=== PATIENT | male | born 1940 | race Caucasian/White ===

== ENCOUNTER → 2017-09-12 | Outpatient (CLI) | END | disposition home or self-care (01) ==

== ENCOUNTER → 2017-12-02 | Outpatient (CLI) | END | disposition home or self-care (01) ==

== ENCOUNTER 2018-06-16 02:38 | Emergency (ER) | END 2018-06-16 05:25 | disposition home or self-care (01) ==

== ENCOUNTER 2018-12-30 08:47 | Observation (INO) | payer MEDICARE, OTHER ==
[~2018-12-30] VITALS: Ht 167.6 cm; Wt 75.0 kg
[~2018-12-30 08:47] MED LIST: AMIO200T; DABI150C PO; DUTA0.5C; EDOX30TA PO; FEBU40TA PO; METF-849 PO; POTA5TAB PO; RAMI2.5C36 PO; RSV10T; TAMS-14 PO; TRAM50TA2 PO
[2018-12-30] MEDS ORDERED: ASPIRIN 81 MG TAB PO ONE (09:30)
[2018-12-30] MEDS ORDERED: APIX2.5T PO (10:21)
[2018-12-30] MEDS ORDERED: AMIO100T4 PO (10:21)
[2018-12-30] MEDS ORDERED: CHOL100062 PO (10:22)
[2018-12-30] MEDS ORDERED: FOLI-49 PO (10:22)
[2018-12-30] MEDS ORDERED: NITR0.4T32 SL (10:23)
[2018-12-30] MEDS ORDERED: GLIM1TAB2 PO (10:24)
[2018-12-30] MEDS ORDERED: DUTA0.5C PO (10:24)
[2018-12-30] MEDS ORDERED: TAMS0.4C2 PO (10:25)
[2018-12-30] MEDS ORDERED: RSV10T PO (10:26)
[2018-12-30] MEDS ORDERED: METO-448 PO (10:26)
[2018-12-30] MEDS ORDERED: POTA15TA9 PO (10:27)
--- NOTE | 2018-12-30 10:54 | ERD ---
ER Documentation Chief Complaint Chief Complaint BIB RA FOR EVAL OF CP. PT TOOK OWN NTG SOFTWARE QUALITY TESTER. PT PAIN FREE AT THIS TIME. HPI This is an 78-year-old gentleman history of coronary disease, A. fib on Eliquis with a pacemaker who presents with palpitations. EMS reported that the patient had transient A. fib with RVR. The patient noted some discomfort in his chest over the past 24-48 hours. He has no significant chest discomfort currently because he took home nitroglycerin. He denies pleuritic pain or significant shortness of breath. ROS All systems reviewed and are negative except as per history of present illness. Medications Home Meds Reported Medications Potassium Citrate* (Potassium Citrate* ER) 15 Meq Tablet.er, 15 MEQ PO DAILY, TAB.SA 12/30/18 Rosuvastatin Calcium* (Crestor*) 10 Mg Tablet, 10 MG PO QHS, #30 TAB 12/30/18 Metoprolol Tartrate* (Lopressor*) 25 Mg Tab, 25 MG PO QPM, #60 TAB 12/30/18 Tamsulosin Hcl* (Tamsulosin Hcl*) 0.4 Mg Cap.er.24h, 0.4 MG PO HS, CAP 12/30/18 Dutasteride* (Avodart*) 0.5 Mg Capsule, 0.5 MG PO DAILY, CAP 12/30/18 Glimepiride* (Glimepiride*) 1 Mg Tablet, 1 MG PO WITH LUNCH, TAB 12/30/18 Nitroglycerin* (Nitroglycerin* SL) 0.4 Mg Tab.subl, 0.4 MG SL Q5MIN PRN for CHEST PAIN, BOTTLE 12/30/18 Cholecalciferol* (Vitamin D3*) 1,000 Unit Tablet, 1000 UNIT PO DAILY, TAB 12/30/18 Folic Acid* (Folic Acid*) 1 Mg Tablet, 1 MG PO DAILY, TAB 12/30/18 Apixaban* (Eliquis*) 2.5 Mg Tablet, 2.5 MG PO BID, TAB 12/30/18 Amiodarone Hcl* (Amiodarone Hcl*) 100 Mg Tablet, 100 MG PO DAILY, #30 TAB 12/30/18 Discontinued Reported Medications Metformin* (Glucophage*) 500 Mg Tab, 500 MG PO WITH BREAKFAST, #30 TAB 12/20/15 Edoxaban Tosylate (Savaysa) 30 Mg Tablet, 30 MG PO DAILY, TAB 12/20/15 Tamsulosin Hcl* (Flomax*) 0.4 Mg Cap.er.24h, 0.4 MG PO DAILY, CAP 06/19/14 Febuxostat* (Uloric*) 40 Mg Tablet, 40 MG PO DAILY, TAB 06/19/14 Ramipril (Ramipril) 2.5 Mg Capsule, 2.5 MG PO DAILY, CAP 06/19/14 Potassium Citrate* (Potassium Citrate* ER) 5 Meq Tablet.sa, 15 MEQ PO DAILY, TAB.SA 06/19/14 Dabigatran Etexilate Mesylate* (Pradaxa*) 150 Mg Capsule, 150 MG PO BID, CAP 06/19/14 Amiodarone Hcl* (Amiodarone Hcl*) 200 Mg Tablet, 1 DAILY 04/16/12 Rosuvastatin Calcium* (Crestor*) 10 Mg Tablet, 1 DAILY 04/16/12 Dutasteride* (Avodart*) 0.5 Mg Capsule, 1 DAILY 04/16/12 Discontinued Scripts Tramadol HCl (Tramadol HCl) 50 Mg Tablet, 50 MG PO Q4 PRN for PAIN, #20 TAB Prov:TERE MEADOWS 06/16/18 Allergies Allergies: Coded Allergies: No Known Drug Allergy (Verified Allergy, Unknown, 12/30/18) PMhx/Soc History of Surgery: Yes (PACEMAKER) Anesthesia Reaction: No Hx Neurological Disorder: No Hx Respiratory Disorders: No Hx Cardiac Disorders: Yes (HTN) Hx Psychiatric Problems: No Hx Miscellaneous Medical Probl: No Hx Alcohol Use: Yes Hx Substance Use: No Hx Tobacco Use: No Smoking Status: Never smoker FmHx Family History: No diabetes Physical Exam Vitals Vital Signs Date Temp Pulse Resp B/P (MAP) Pulse Ox O2 O2 Flow FiO2 Time Delivery Rate 12/30/18 Nasal 2 09:00 Cannula 12/30/18 98.2 60 18 164/104 99 08:58 (124) 12/30/18 62 12 116/79 97 Room Air 08:55 (91) Physical Exam General: Well developed, well nourished, no acute distress Head: Normocephalic, atraumatic. Eyes: Pupils equally reactive, EOM intact ENT: Moist mucous membranes Neck: Supple, no lymphadenopathy Respiratory: Lungs clear bilaterally, no distress Cardiovascular: RRR, no murmurs, rubs, or gallops Abdominal: Soft, non-tender, non-distended, no peritoneal signs : Deferred MSK: No edema, no unilateral swelling, 5/5 strength Neurologic: Alert and oriented, moving all extremities, normal speech, no focal weakness, no cerebellar signs Skin: No rash Psych: Normal mood Result Diagram: 12/30/1890312/30/18903 Results 24 hrs Laboratory Tests Test 12/30/18 09:04 White Blood Count 11.6 10^3/ul Red Blood Count 5.16 10^6/ul Hemoglobin 15.2 g/dl Hematocrit 44.8 % Mean Corpuscular Volume 86.8 fl Mean Corpuscular Hemoglobin 29.5 pg Mean Corpuscular Hemoglobin Concent 33.9 g/dl Red Cell Distribution Width 13.2 % Platelet Count 109 10^3/UL Mean Platelet Volume 10.1 fl Immature Granulocytes % 0.400 % Neutrophils % 49.5 % Lymphocytes % 41.3 % Monocytes % 7.6 % Eosinophils % 0.9 % Basophils % 0.3 % Nucleated Red Blood Cells % 0.0 /100WBC Immature Granulocytes # 0.050 10^3/ul Neutrophils # 5.7 10^3/ul Lymphocytes # 4.8 10^3/ul Monocytes # 0.9 10^3/ul Eosinophils # 0.1 10^3/ul Basophils # 0.0 10^3/ul Nucleated Red Blood Cells # 0.0 10^3/ul Sodium Level 140 mmol/L Potassium Level 4.9 mmol/L Chloride Level 104 mmol/L Carbon Dioxide Level 27 mmol/L Anion Gap 9 Blood Urea Nitrogen 17 mg/dl Creatinine 1.09 mg/dl Est Glomerular Filtrat Rate mL/min mL/min Glucose Level 154 mg/dl Calcium Level 9.4 mg/dl Troponin I < 0.012 ng/ml Current Medications Medications Dose Sig/Otilia Start Time Status Last (Trade) Ordered Route PRN Stop Time Admin Dose Reason Admin Aspirin 162 mg ONCE ONCE 12/30/18 DC 12/30/18 (Aspirin) PO 09:30 12/30/18 09:32 09:31 Procedures/MDM EKG, MONITORS, & DIAGNOSTIC IMAGING: EKG: I reviewed and interpreted a 12-lead EKG. Rhythm: paced ST Changes: No contiguous ST segment elevations T waves: No contiguous T wave inversions Impression: [No evidence of acute cardiac ischemia] Repeat EKG: EKG: I reviewed and interpreted a 12-lead EKG. Rhythm: paced ST Changes: No contiguous ST segment elevations T waves: No contiguous T wave inversions Impression: [No evidence of acute cardiac ischemia] Chest x-ray: I reviewed and interpreted a 1 view of the chest Mediastinum: No enlargement Cardiac silhouette: No cardiomegaly Airspace: Clear lung singleton bilaterally without evidence of pneumothorax Bones: No evidence of fracture PROCEDURES: [None] LAB INTERPRETATION: Negative troponin MEDICAL DECISION MAKING: The patient's history, physical exam and clinical presentation is concerning for possible cardiogenic etiology and acute coronary syndrome. Based on the patient's clinical exam and history and risk factors, I have a much lower clinical concern for pulmonary embolism, acute aortic dissection, pneumothorax, pneumonia, cardiac tamponade HEART Score: 5 MACE Rate: 12-16.6% Shared Decision Making: We had a conversation regarding risk stratification, MACE rate, and the risks, benefits, alternatives of disposition planning options. Disposition planning: Admit for r/o ER COURSE: * Aspirin provided. Chest pain-free. Negative troponin. Given risk profile admission necessary. CONSULTATION: [None] DISPOSITION PLAN: Telemetry admission for management of chest pain to rule out acute coronary syndrome, serial enzymes, risk stratification and consideration of provocative testing CONSULTATION: Accepting care team and consultations: I discussed the current laboratory data, diagnostic imaging and emergency care provided. Ad[facility] Admitting team indication: Insurance directed Departure Diagnosis: Primary Impression: Chest pain Chest pain type: unspecified Qualified Codes: R07.9 - Chest pain, unspecified Additional Impression: History of atrial fibrillation Condition: KIRILL Guardado MD Dec 30, 2018 10:54
[2018-12-30 11:00] VITALS: BP 132/75; PULSE 60; RESP 20
[2018-12-30] MEDS ORDERED: HYDROCODONE/APAP (5/325) TAB PO PRN (11:00)
[2018-12-30] MEDS ORDERED: morphine 2 MG INJ IV PRN (11:00)
[2018-12-30] MEDS ORDERED: ACETAMINOPHEN 325 MG TAB PO PRN ×2 (11:00)
[2018-12-30] MEDS ORDERED: NACL 0.9% 3 ML SYG IV SCH (11:00)
[2018-12-30] MEDS ORDERED: ONDANSETRON 4 MG INJ IV PRN ×2 (11:00)
--- NOTE | 2018-12-30 11:23 | CONS ---
Consultation Date/Type/Reason Admit Date/Time Type of Consult Cardiology Date/Time of Note DATE: 12/30/18 TIME: 11:22 Hx of Present Illness 78 yo with hTN, CAD, pacer, parox a. fib - recently low plt - stopped anti- coagulation and restarted yesterday with Eliquis 2.5 bid per pmd (new medication for him) - now a. fib with RVR and conversion to sinus - ? Eliquis effect - con't now - add amio + BB - stres test tomorrow - full note dictated, tnx you Past Medical History Home Meds Reported Medications Potassium Citrate* (Potassium Citrate* ER) 15 Meq Tablet.er, 15 MEQ PO DAILY, TAB.SA 12/30/18 Rosuvastatin Calcium* (Crestor*) 10 Mg Tablet, 10 MG PO QHS, #30 TAB 12/30/18 Metoprolol Tartrate* (Lopressor*) 25 Mg Tab, 25 MG PO QPM, #60 TAB 12/30/18 Tamsulosin Hcl* (Tamsulosin Hcl*) 0.4 Mg Cap.er.24h, 0.4 MG PO HS, CAP 12/30/18 Dutasteride* (Avodart*) 0.5 Mg Capsule, 0.5 MG PO DAILY, CAP 12/30/18 Glimepiride* (Glimepiride*) 1 Mg Tablet, 1 MG PO WITH LUNCH, TAB 12/30/18 Nitroglycerin* (Nitroglycerin* SL) 0.4 Mg Tab.subl, 0.4 MG SL Q5MIN PRN for CHEST PAIN, BOTTLE 12/30/18 Cholecalciferol* (Vitamin D3*) 1,000 Unit Tablet, 1000 UNIT PO DAILY, TAB 12/30/18 Folic Acid* (Folic Acid*) 1 Mg Tablet, 1 MG PO DAILY, TAB 12/30/18 Apixaban* (Eliquis*) 2.5 Mg Tablet, 2.5 MG PO BID, TAB 12/30/18 Amiodarone Hcl* (Amiodarone Hcl*) 100 Mg Tablet, 100 MG PO DAILY, #30 TAB 12/30/18 Discontinued Reported Medications Metformin* (Glucophage*) 500 Mg Tab, 500 MG PO WITH BREAKFAST, #30 TAB 12/20/15 Edoxaban Tosylate (Savaysa) 30 Mg Tablet, 30 MG PO DAILY, TAB 12/20/15 Tamsulosin Hcl* (Flomax*) 0.4 Mg Cap.er.24h, 0.4 MG PO DAILY, CAP 06/19/14 Febuxostat* (Uloric*) 40 Mg Tablet, 40 MG PO DAILY, TAB 06/19/14 Ramipril (Ramipril) 2.5 Mg Capsule, 2.5 MG PO DAILY, CAP 06/19/14 Potassium Citrate* (Potassium Citrate* ER) 5 Meq Tablet.sa, 15 MEQ PO DAILY, TAB.SA 06/19/14 Dabigatran Etexilate Mesylate* (Pradaxa*) 150 Mg Capsule, 150 MG PO BID, CAP 06/19/14 Amiodarone Hcl* (Amiodarone Hcl*) 200 Mg Tablet, 1 DAILY 04/16/12 Rosuvastatin Calcium* (Crestor*) 10 Mg Tablet, 1 DAILY 04/16/12 Dutasteride* (Avodart*) 0.5 Mg Capsule, 1 DAILY 04/16/12 Discontinued Scripts Tramadol HCl (Tramadol HCl) 50 Mg Tablet, 50 MG PO Q4 PRN for PAIN, #20 TAB Prov:TERE MEADOWS 06/16/18 Medications Current Medications Ondansetron HCl (Zofran Inj) 4 mg ER BRIDGE PRN IV NAUSEA/VOMITING; Start 12/30/18 at 11:00; Stop 12/31/18 at 10:59 Acetaminophen (Tylenol Tab) 650 mg ER BRIDGE PRN PO .MILD PAIN 1-3 OR TEMP; Start 12/30/18 at 11:00; Stop 12/31/18 at 10:59 IV Flush (NS 3 ml) 3 ml PER PROTOCOL IV ; Start 12/30/18 at 11:00 Ondansetron HCl (Zofran Inj) 4 mg Q6H PRN IV NAUSEA/VOMITING; Start 12/30/18 at 11:00 Acetaminophen (Tylenol Tab) 650 mg Q6H PRN PO .PAIN 1-3 OR TEMP; Start 12/30/18 at 11:00 Acetaminophen/ Hydrocodone Bitart ([place] (5/325)) 1 tab Q6H PRN PO .PAIN 4-6; Start 12/30/18 at 11:00 Morphine Sulfate (morphine) 2 mg Q4H PRN IV .PAIN 7-10; Start 12/30/18 at 11:00 Apixaban (Eliquis) 2.5 mg BID PO ; Start 12/30/18 at 21:00 Cholecalciferol (Vitamin D) 1,000 unit DAILY PO ; Start 12/31/18 at 09:00 Dutasteride (Avodart) 0.5 mg DAILY PO ; Start 12/31/18 at 09:00 Folic Acid (Folic Acid) 1 mg DAILY PO ; Start 12/31/18 at 09:00 Metoprolol Tartrate (Lopressor) 25 mg QPM PO ; Start 12/30/18 at 21:00 Tamsulosin HCl (Flomax) 0.4 mg HS PO ; Start 12/30/18 at 21:00 Atorvastatin Calcium (Lipitor) 40 mg HS PO ; Start 12/30/18 at 21:00 Hydralazine HCl (Apresoline) 10 mg Q4H PRN IV sbp >160; Start 12/30/18 at 11:30 Carvedilol (Coreg) 6.25 mg BID PO ; Start 12/30/18 at 21:00 Amiodarone HCl (Cordarone) 200 mg BID PO ; Start 12/30/18 at 21:00 Allergies: Coded Allergies: No Known Drug Allergy (Verified Allergy, Unknown, 12/30/18) Social History Smoking Status: Never smoker Exam/Review of Systems Vital Signs Vitals Vital Signs Date Temp Pulse Resp B/P (MAP) Pulse Ox O2 O2 Flow FiO2 Time Delivery Rate 12/30/18 Nasal 2 09:00 Cannula 12/30/18 98.2 60 18 164/104 99 08:58 (124) Labs Result Diagram: 12/30/1804 12/30/18 0904 Results 24hrs Laboratory Tests Test 12/30/18 09:04 White Blood Count 11.6 H Red Blood Count 5.16 Hemoglobin 15.2 Hematocrit 44.8 Mean Corpuscular Volume 86.8 Mean Corpuscular Hemoglobin 29.5 Mean Corpuscular Hemoglobin Concent 33.9 Red Cell Distribution Width 13.2 Platelet Count 109 L Mean Platelet Volume 10.1 Immature Granulocytes % 0.400 Neutrophils % 49.5 Lymphocytes % 41.3 Monocytes % 7.6 Eosinophils % 0.9 Basophils % 0.3 Nucleated Red Blood Cells % 0.0 Immature Granulocytes # 0.050 H Neutrophils # 5.7 Lymphocytes # 4.8 H Monocytes # 0.9 Eosinophils # 0.1 Basophils # 0.0 Nucleated Red Blood Cells # 0.0 Sodium Level 140 Potassium Level 4.9 Chloride Level 104 Carbon Dioxide Level 27 Anion Gap 9 Blood Urea Nitrogen 17 Creatinine 1.09 Est Glomerular Filtrat Rate mL/min Glucose Level 154 Calcium Level 9.4 Troponin I < 0.012 Medications Medications Current Medications Ondansetron HCl (Zofran Inj) 4 mg ER BRIDGE PRN IV NAUSEA/VOMITING; Start 12/30/18 at 11:00; Stop 12/31/18 at 10:59 Acetaminophen (Tylenol Tab) 650 mg ER BRIDGE PRN PO .MILD PAIN 1-3 OR TEMP; Start 12/30/18 at 11:00; Stop 12/31/18 at 10:59 IV Flush (NS 3 ml) 3 ml PER PROTOCOL IV ; Start 12/30/18 at 11:00 Ondansetron HCl (Zofran Inj) 4 mg Q6H PRN IV NAUSEA/VOMITING; Start 12/30/18 at 11:00 Acetaminophen (Tylenol Tab) 650 mg Q6H PRN PO .PAIN 1-3 OR TEMP; Start 12/30/18 at 11:00 Acetaminophen/ Hydrocodone Bitart ([place] (5/325)) 1 tab Q6H PRN PO .PAIN 4-6; Start 12/30/18 at 11:00 Morphine Sulfate (morphine) 2 mg Q4H PRN IV .PAIN 7-10; Start 12/30/18 at 11:00 Apixaban (Eliquis) 2.5 mg BID PO ; Start 12/30/18 at 21:00 Cholecalciferol (Vitamin D) 1,000 unit DAILY PO ; Start 12/31/18 at 09:00 Dutasteride (Avodart) 0.5 mg DAILY PO ; Start 12/31/18 at 09:00 Folic Acid (Folic Acid) 1 mg DAILY PO ; Start 12/31/18 at 09:00 Metoprolol Tartrate (Lopressor) 25 mg QPM PO ; Start 12/30/18 at 21:00 Tamsulosin HCl (Flomax) 0.4 mg HS PO ; Start 12/30/18 at 21:00 Atorvastatin Calcium (Lipitor) 40 mg HS PO ; Start 12/30/18 at 21:00 Hydralazine HCl (Apresoline) 10 mg Q4H PRN IV sbp >160; Start 12/30/18 at 11:30 Carvedilol (Coreg) 6.25 mg BID PO ; Start 12/30/18 at 21:00 Amiodarone HCl (Cordarone) 200 mg BID PO ; Start 12/30/18 at 21:00 KATIE LUNA MD Dec 30, 2018 11:23
[2018-12-30] MEDS ORDERED: hydrALAzine 20 MG INJ IV PRN (11:30)
[2018-12-30 12:00] VITALS: PULSE 60
[2018-12-30 12:08] VITALS: Ht 167.6 cm; Wt 75.0 kg
[2018-12-30] MEDS ORDERED: GLUCOSE GEL 15 GRAM TUBE BUCCAL PRN (13:00)
[2018-12-30] MEDS ORDERED: GLUCAGON 1 MG INJ IM PRN (13:00)
[2018-12-30] MEDS ORDERED: GLUCOSE GEL 15 GRAM TUBE PO PRN ×2 (13:00)
[2018-12-30] MEDS ORDERED: DEXTROSE 50% 50 ML SYRINGE IV PRN ×2 (13:00)
--- NOTE | 2018-12-30 13:09 | HP ---
Date/Time of Note Date/Time of Note DATE: 12/30/18 TIME: 13:09 Assessment/Plan VTE Prophylaxis Pharmacological prophylaxis: other Lines/Catheters IV Catheter Type (from Nrs): Saline Lock Assessment/Plan Hospital Course Patient is a male with a past medical history significant for atrial fibrillation is paroxysmal, coronary artery disease pacemaker, BPH, dyslipidemia, diabetes mellitus, recently diagnosed with normal cytopenia who presents to [facility] for palpitations and chest irritation. Patient presenting to emergency department complaining of palpitations and chest irritation for the past 1-2 days. Patient states that he took a home nitroglycerin and he follows up with a wheelman on a regular basis. Currently patient feels relatively chest pain-free, denying any significant palpitations at this time. Patient denies any shortness of breath, abdominal pain, nausea, vomiting, headache, leg pain. The patient has a pacemaker surgery as well as a childhood left foot surgery Objective Physical exam General: Patient is laying in bed and answers questions appropriately Mentation: Patient is alert and oriented 4, Head: Normocephalic atraumatic Eyes: EOMI, pupils reactive to light Neck: Supple, nontender, midline Respiratory: Clear to auscultation bilaterally Cardiovascular: regular rate, no obvious murmurs Gastrointestinal: non-tender to palpation, bowel sounds heard. Neurological: Moves all extremities spontaneously Skin: No new skin lesions Assessment and plan Chest palpitations with chest irritation -Rule out ACS, stress test planned for tomorrow as patient's wheelman, Dr. Oglesby was consulted -Continue to trend troponins -Statin -Echo if needed per wheelman Coronary artery disease -Management as above wheelman -Stress test pending for tomorrow -Continue baby aspirin per cardiology recommendations Paroxysmal A. fib -Continue Eliquis per cardiology recommendations -Amiodarone and beta-yolanda has also been adjusted per wheelman Diabetes mellitus -Insulin sliding scale for now Dyslipidemia -Statin BPH -Tamsulosin para graph disposition -Monitor patient for chest pain, trend troponins, stress test planned for the a.m. Result Diagram: 12/30/1890312/30/18903 Results 24hrs Laboratory Tests Test 12/30/18 09:04 White Blood Count 11.6 H Red Blood Count 5.16 Hemoglobin 15.2 Hematocrit 44.8 Mean Corpuscular Volume 86.8 Mean Corpuscular Hemoglobin 29.5 Mean Corpuscular Hemoglobin Concent 33.9 Red Cell Distribution Width 13.2 Platelet Count 109 L Mean Platelet Volume 10.1 Immature Granulocytes % 0.400 Neutrophils % 49.5 Lymphocytes % 41.3 Monocytes % 7.6 Eosinophils % 0.9 Basophils % 0.3 Nucleated Red Blood Cells % 0.0 Immature Granulocytes # 0.050 H Neutrophils # 5.7 Lymphocytes # 4.8 H Monocytes # 0.9 Eosinophils # 0.1 Basophils # 0.0 Nucleated Red Blood Cells # 0.0 Sodium Level 140 Potassium Level 4.9 Chloride Level 104 Carbon Dioxide Level 27 Anion Gap 9 Blood Urea Nitrogen 17 Creatinine 1.09 Est Glomerular Filtrat Rate mL/min Glucose Level 154 Calcium Level 9.4 Troponin I < 0.012 HPI/ROS Admit Date/Time Admit Date/Time PMH/Family/Social Past Medical History Medications Current Medications Ondansetron HCl (Zofran Inj) 4 mg ER BRIDGE PRN IV NAUSEA/VOMITING; Start 12/30/18 at 11:00; Stop 12/31/18 at 10:59 Acetaminophen (Tylenol Tab) 650 mg ER BRIDGE PRN PO .MILD PAIN 1-3 OR TEMP; Start 12/30/18 at 11:00; Stop 12/31/18 at 10:59 IV Flush (NS 3 ml) 3 ml PER PROTOCOL IV ; Start 12/30/18 at 11:00 Ondansetron HCl (Zofran Inj) 4 mg Q6H PRN IV NAUSEA/VOMITING; Start 12/30/18 at 11:00 Acetaminophen (Tylenol Tab) 650 mg Q6H PRN PO .PAIN 1-3 OR TEMP; Start 12/30/18 at 11:00 Acetaminophen/ Hydrocodone Bitart ([place] (5/325)) 1 tab Q6H PRN PO .PAIN 4-6; Start 12/30/18 at 11:00 Morphine Sulfate (morphine) 2 mg Q4H PRN IV .PAIN 7-10; Start 12/30/18 at 11:00 Apixaban (Eliquis) 2.5 mg BID PO ; Start 12/30/18 at 21:00 Cholecalciferol (Vitamin D) 1,000 unit DAILY PO ; Start 12/31/18 at 09:00 Dutasteride (Avodart) 0.5 mg DAILY PO ; Start 12/31/18 at 09:00 Folic Acid (Folic Acid) 1 mg DAILY PO ; Start 12/31/18 at 09:00 Tamsulosin HCl (Flomax) 0.4 mg HS PO ; Start 12/30/18 at 21:00 Atorvastatin Calcium (Lipitor) 40 mg HS PO ; Start 12/30/18 at 21:00 Hydralazine HCl (Apresoline) 10 mg Q4H PRN IV sbp >160; Start 12/30/18 at 11:30 Diagnostic Test (Pha) (Accu-Chek) 1 ea 02 XX ; Start 12/31/18 at 02:00 Insulin Aspart (Novolog Insulin Pen) NOVOLOG *MILD* ALGORITHM WITH MEALS BEDTIME SC ; Start 12/30/18 at 17:55 Miscellaneous Information 1 ea NOTE XX ; Start 12/30/18 at 13:00 Glucose (Glutose) 15 gm Q15M PRN PO DECREASED GLUCOSE; Start 12/30/18 at 13:00 Glucose (Glutose) 22.5 gm Q15M PRN PO DECREASED GLUCOSE; Start 12/30/18 at 13:00 Dextrose (D50w Syringe) 25 ml Q15M PRN IV DECREASED GLUCOSE; Start 12/30/18 at 13:00 Dextrose (D50w Syringe) 50 ml Q15M PRN IV DECREASED GLUCOSE; Start 12/30/18 at 13:00 Glucagon (Glucagen) 1 mg Q15M PRN IM DECREASED GLUCOSE; Start 12/30/18 at 13:00 Glucose (Glutose) 15 gm Q15M PRN BUCCAL DECREASED GLUCOSE; Start 12/30/18 at 13:00 Amiodarone HCl (Cordarone) 200 mg BID PO ; Start 12/30/18 at 13:00; Status UNV Carvedilol (Coreg) 6.25 mg BID PO ; Start 12/30/18 at 13:00; Status UNV Coded Allergies: No Known Drug Allergy (Verified Allergy, Unknown, 12/30/18) Social History Smoking Status: Never smoker Exam/Review of Systems Vital Signs Vitals Vital Signs Date Temp Pulse Resp B/P (MAP) Pulse Ox O2 O2 Flow FiO2 Time Delivery Rate 12/30/18 60 14 110/74 97 Room Air 11:33 (86) 12/30/18 2 09:00 12/30/18 98.2 08:58 CHELITA QUILES Dec 30, 2018 13:09
[2018-12-30] MEDS: AMIODARONE 200 MG TAB PO SCH ×2 (13:46→22:47)
--- NOTE | 2018-12-30 14:20 | CONS ---
DATE OF ADMISSION: 12/30/2018 DATE OF CONSULTATION: TYPE OF CONSULTATION: Cardiology. REFERRING PHYSICIAN: Chelita Youngblood MD REASON FOR EVALUATION: Atrial fibrillation with rapid ventricular response, precordial chest pain. HISTORY OF PRESENT ILLNESS: Mr. Flores is an 78-year-old gentleman known to me from multiple offic e visits and hospital admissions with history of hypertension, dyslipidemia, history of coronary nelson ry disease, history of atrial fibrillation, history of recently diagnosed low platelet count per PMD. The patient was on ____ prior, but recently it was held because of low platelets. [facility]. Apparently, his platelets got better, so he was re started on Eliquis. Last night, he had multiple episodes of atrial fibrillation with rapid ventricul ar response and finally came to the hospital because of precordial chest pain. It appears that he co nverted to sinus rhythm now which was a spontaneous conversion. His initial troponin was 0.012, but the patient did have some precordial chest pain. He has not had any risk stratification and I am goi ng to recommend for patient to have inpatient risk stratification with stress test as possible. With regard to his anticoagulation, it appears that his platelets are now 109 and I think he will tolerat e a small dose of Eliquis. I think the 2.5 mg dosing would be appropriate given his age of 78 as wel l as low platelets. PAST MEDICAL HISTORY: Hypertension, dyslipidemia, history of atrial fibrillation, history of coronar y artery disease, history of pacemaker placement, history of paroxysmal atrial fibrillation, history of recent diagnosis of low platelets of unclear significance, secondary hypercoagulable state. ALLERGIES: NO KNOWN DRUG ALLERGIES. SOCIAL HISTORY: The patient does not smoke, does not drink, does not use any drugs. FAMILY HISTORY: Negative for sudden cardiac or premature coronary artery disease. MEDICATIONS: The patient is on: 1. Amiodarone 100 mg p.o. b.i.d. 2. ____ once a day. 3. Eliquis 2.5 mg p.o. b.i.d. 4. Folic acid. 5. Docusate. 6. Lipitor. 7. Hydrochlorothiazide. 8. Morphine sulfate. REVIEW OF SYSTEMS: CONSTITUTIONAL: No fevers, no chills, no recent weight. HEENT: No changes in vision or hearing. CARDIAC: Chest pain as reported above with AFib. RESPIRATORY: Shortness of breath. GASTROINTESTINAL: No nausea, vomiting. GENITOURINARY: No dysuria, hematuria. NEUROLOGIC: No focal deficits. HEMATOLOGIC: No easy bruising. PSYCHIATRIC: No history of psychiatric illness. PHYSICAL EXAMINATION: VITAL SIGNS: Temperature is 98.2, heart rate 69 now in sinus, blood pressure 116/79. GENERAL: He is a thin gentleman in no acute distress, alert and oriented x3, aware of his condition. HEENT: Head is normocephalic, atraumatic. Eyes are anicteric. NECK: Supple. JVD is 6 cm. There is no lymphadenopathy. HEART: Regular with soft holosystolic murmur ____. LUNGS: Coarse to base. ABDOMEN: Distended. Bowel sounds are present. There is no hepatosplenomegaly. GENITOURINARY: Grossly intact. EXTREMITIES: No clubbing, cyanosis or edema. DIAGNOSTIC DATA: ECG read by me shows atrial paced rhythm with some nonspecific ST-T changes. LABORATORY DATA: White count 11.6, hemoglobin is 15.2, platelets 109. Sodium 140, potassium 4.9. H is BUN is 15, creatinine 1.0. Troponin is negative at 0.012. ASSESSMENT AND PLAN: 1. Atrial fibrillation. The patient has history of atrial fibrillation, paroxysmal. We would incre ase his amiodarone dose to 100 mg p.o. b.i.d. now and follow expectantly. The patient fortunately wa s converted to sinus rhythm. 2. History of cardiac pacemaker. It was recently checked in the office with good function. We will monitor closely. 3. Secondary hypercoagulable state. The patient had recently low platelets for which his anticoagul ation therapy was held, but now his platelets are better. He was resumed on Eliquis 2.5 per his PMD yesterday. I do not know if that was what precipitated atrial fibrillation, but that cannot be ruled out. I think for now, we will continue Eliquis to see if further episodes are precipitated and foll ow expectantly. I also think it would not be unreasonable for patient to be on a small dose of beta- yolanda in order to prevent atrial fibrillation recurrences. 4. Chest pain. The patient reports chest pain. He was supposed to have a stress test in the office , but given that he is in the hospital now, we will risk stratify with stress test. I would like to thank Dr. Youngblood for referring this patient for my evaluation. Dictated By: KATIE LUNA MD ML/NTS Conf#: [id number] DID#: [id number] CC: CHELITA YOUNGBLOOD MD;*EndCC*
[2018-12-30 15:40] VITALS: BP 119/69; PULSE 60; RESP 20
[2018-12-30] MEDS ORDERED: NITROGLYCERIN (SL) 0.4 MG TAB ONE (15:51)
[2018-12-30 16:00] VITALS: PULSE 60
[2018-12-30] MEDS ORDERED: NITROGLYCERIN (SL) 0.4 MG TAB SL PRN (16:00)
[2018-12-30] MEDS: INSULIN ASPART [NOVOLOG] 3 ML PEN SC SCH ×2 (17:19→20:32)
[2018-12-30 20:00] VITALS: BP 132/76; PULSE 60; PULSE 67; RESP 18
[2018-12-30] MEDS: APIXABAN 5 MG TABLET PO SCH (20:27)
[2018-12-30] MEDS ORDERED: ATORVASTATIN 40 MG TAB PO SCH (21:00)
[2018-12-30] MEDS ORDERED: AMIODARONE 200 MG TAB PO SCH (21:00)
[2018-12-30] MEDS ORDERED: METOPROLOL 25 MG TAB PO SCH (21:00)
[2018-12-30] MEDS ORDERED: TAMSULOSIN (SR) 0.4 MG CAP PO SCH (21:00)
[2018-12-30 23:53] VITALS: BP 146/76; PULSE 60; RESP 19
[2018-12-31] VITALS (8 sets, daily range): BP systolic 136–144; BP diastolic 70–82; PULSE 60–85; RESP 18–20
[2018-12-31] MEDS ORDERED: ACCU-CHEK XX SCH (02:00)
[2018-12-31] MEDS: INSULIN ASPART [NOVOLOG] 3 ML PEN SC SCH (07:54)
[2018-12-31] MEDS: AMIODARONE 200 MG TAB PO SCH (08:35)
[2018-12-31] MEDS: APIXABAN 5 MG TABLET PO SCH (08:36)
[2018-12-31] MEDS ORDERED: AMIODARONE 200 MG TAB PO SCH (09:00)
[2018-12-31] MEDS ORDERED: CHOLECALCIFEROL 1,000 UNIT TAB PO SCH (09:00)
[2018-12-31] MEDS ORDERED: FOLIC ACID 1 MG TAB PO SCH (09:00)
[2018-12-31] MEDS ORDERED: DUTASTERIDE 0.5 MG CAP PO SCH (09:00)
[2018-12-31] MEDS ORDERED: ASPIRIN 81 MG TAB PO SCH (09:00)
[2018-12-31] MEDS ORDERED: SOD CHLORIDE 0.45% 1,000 ML IV SCH (10:30)
[2018-12-31] MEDS ORDERED: REGADENOSON 0.4 MG/5 ML SYG ONE (11:28)
--- NOTE | 2018-12-31 11:47 | CONS ---
Assessment/Plan Assessment/Plan Hospital Course (Demo Recall) IMP: 1.Chest pain-neg trop x 3 2.HTN 3.PAF-in SR 4.PPM Recc: -Teele -Contineu eliquis -Continue amio -Contineu coreg -Lexiscan stress test today Consultation Date/Type/Reason Admit Date/Time Dec 30, 2018 at 10:51 Initial Consult Date 12/30/18 Type of Consult Cardiology Reason for Consultation chest pain Requesting Provider: SRAVANI SAUCEDA Date/Time of Note DATE: 12/31/18 TIME: 11:43 Exam/Review of Systems Vital Signs Vitals Vital Signs Date Temp Pulse Resp B/P (MAP) Pulse Ox O2 O2 Flow FiO2 Time Delivery Rate 12/31/18 60 08:17 12/31/18 97.6 18 136/82 97 07:09 (100) 12/31/18 Room Air 04:00 12/30/18 2 09:00 Intake and Output 12/30/18 12/30/18 12/31/18 1515:00 23:00 07:00 IntakeIntake Total 500 ml 800 ml BalanceBalance 500 ml 800 ml Exam Exam Review of Systems: CONSTITUTIONAL: No fevers, chills. PULMONARY: No sob CARDIOVASCULAR: No chest pain/palpitations GASTROINTESTINAL: No nausea/vomiting. GENITOURINARY: No hematuria/dysuria. MUSCULOSKELETAL: No myagias/arthalgias. PSYCHIATRIC: The patient denies depression. NEUROLOGIC: No weakness Constitutional: alert Psych: no complaints Head: normocephalic ENMT: mucosa pink and moist Neck: supple, jvd (9 cm water) Respiratory: diminished breath sounds (at bases/B) Cardiovascular: regular rate and rhythm Gastrointestinal: soft, non-tender Musculoskeletal: muscle tone (normal) Extremities: edema (none) Neurological: other (No focal deficits) Labs Result Diagram: 12/31/18 0612/31/18 06 Results 24hrs Laboratory Tests Test 12/30/18 13:53 12/30/18 17:16 12/30/18 20:29 12/30/18 21:01 Creatine Kinase 67 61 Creatine Kinase Index 2.4 1.8 Creatinine Kinase MB 1.60 1.10 (Mass) Troponin I < 0.012 < 0.012 Bedside Glucose 144 112 Test 12/31/18 01:46 12/31/18 06:05 12/31/18 07:53 Bedside Glucose 113 142 White Blood Count 13.4 H Red Blood Count 4.90 Hemoglobin 14.3 Hematocrit 42.7 Mean Corpuscular 87.1 Volume Mean Corpuscular 29.2 Hemoglobin Mean Corpuscular 33.5 Hemoglobin Concent Red Cell Distribution 13.2 Width Platelet Count 94 L Mean Platelet Volume 10.8 H Immature Granulocytes 0.400 % Neutrophils % 38.9 L Lymphocytes % 51.3 H Monocytes % 7.7 Eosinophils % 1.5 Basophils % 0.2 Nucleated Red Blood 0.0 Cells % Immature Granulocytes 0.060 H # Neutrophils # 5.2 Lymphocytes # 6.9 H Monocytes # 1.0 H Eosinophils # 0.2 Basophils # 0.0 Nucleated Red Blood 0.0 Cells # Sodium Level 138 Potassium Level 4.2 Chloride Level 104 Carbon Dioxide Level 27 Anion Gap 7 Blood Urea Nitrogen 21 H Creatinine 1.10 Est Glomerular Filtrat Rate mL/min Glucose Level 111 # Hemoglobin A1c 6.3 H Calcium Level 8.9 Magnesium Level 2.0 Total Bilirubin 1.3 Direct Bilirubin 0.00 Indirect Bilirubin 1.3 H Aspartate Amino 18 Transf (AST/SGOT) Alanine 19 Aminotransferase (ALT /SGPT) Alkaline Phosphatase 44 Total Protein 5.9 L Albumin 3.6 Globulin 2.30 Albumin/Globulin 1.56 Ratio Triglycerides Level 103 Cholesterol Level 130 LDL Cholesterol, 61 Calculated HDL Cholesterol 48 Cholesterol/HDL Ratio 2.7 Medications Medications Current Medications IV Flush (NS 3 ml) 3 ml PER PROTOCOL IV ; Start 12/30/18 at 11:00 Ondansetron HCl (Zofran Inj) 4 mg Q6H PRN IV NAUSEA/VOMITING; Start 12/30/18 at 11:00 Acetaminophen (Tylenol Tab) 650 mg Q6H PRN PO .PAIN 1-3 OR TEMP; Start 12/30/18 at 11:00 Acetaminophen/ Hydrocodone Bitart (Lorraine (5/325)) 1 tab Q6H PRN PO .PAIN 4-6; Start 12/30/18 at 11:00 Morphine Sulfate (morphine) 2 mg Q4H PRN IV .PAIN 7-10; Start 12/30/18 at 11:00 Apixaban (Eliquis) 2.5 mg BID PO Last administered on 12/31/18at 08:36; Admin Dose 2.5 MG; Start 12/30/18 at 21:00 Cholecalciferol (Vitamin D) 1,000 unit DAILY PO Last administered on 12/31/18at 08:34; Admin Dose 1,000 UNIT; Start 12/31/18 at 09:00 Dutasteride (Avodart) 0.5 mg DAILY PO Last administered on 12/31/18at 08:33; Admin Dose 0.5 MG; Start 12/31/18 at 09:00 Folic Acid (Folic Acid) 1 mg DAILY PO Last administered on 12/31/18at 08:35; Admin Dose 1 MG; Start 12/31/18 at 09:00 Tamsulosin HCl (Flomax) 0.4 mg HS PO Last administered on 12/30/18at 20:27; Admin Dose 0.4 MG; Start 12/30/18 at 21:00 Atorvastatin Calcium (Lipitor) 40 mg HS PO Last administered on 12/30/18at 20:26; Admin Dose 40 MG; Start 12/30/18 at 21:00 Hydralazine HCl (Apresoline) 10 mg Q4H PRN IV sbp >160; Start 12/30/18 at 11:30 Diagnostic Test (Pha) (Accu-Chek) 1 ea 02 XX ; Start 12/31/18 at 02:00 Insulin Aspart (Novolog Insulin Pen) NOVOLOG *MILD* ALGORITHM WITH MEALS BEDTIME SC ; Start 12/30/18 at 17:55 Miscellaneous Information 1 ea NOTE XX ; Start 12/30/18 at 13:00 Glucose (Glutose) 15 gm Q15M PRN PO DECREASED GLUCOSE; Start 12/30/18 at 13:00 Glucose (Glutose) 22.5 gm Q15M PRN PO DECREASED GLUCOSE; Start 12/30/18 at 13:00 Dextrose (D50w Syringe) 25 ml Q15M PRN IV DECREASED GLUCOSE; Start 12/30/18 at 13:00 Dextrose (D50w Syringe) 50 ml Q15M PRN IV DECREASED GLUCOSE; Start 12/30/18 at 13:00 Glucagon (Glucagen) 1 mg Q15M PRN IM DECREASED GLUCOSE; Start 12/30/18 at 13:00 Glucose (Glutose) 15 gm Q15M PRN BUCCAL DECREASED GLUCOSE; Start 12/30/18 at 13:00 Amiodarone HCl (Cordarone) 200 mg BID PO Last administered on 12/31/18at 08:35; Admin Dose 200 MG; Start 12/30/18 at 13:30 Carvedilol (Coreg) 6.25 mg BID PO ; Start 12/30/18 at 13:30 Aspirin (Aspirin) 81 mg DAILY PO Last administered on 12/31/18at 08:35; Admin Dose 81 MG; Start 12/31/18 at 09:00 Nitroglycerin (Nitroglycerin (Sl Tab) 0.4 Mg) 1 tab Q5M PRN SL ANGINA; Start 12/30/18 at 16:00 Sodium Chloride 1,000 ml @ 40 mls/hr Q24H IV ; Start 12/31/18 at 10:30 ALFREDO THAKUR Dec 31, 2018 11:47
[2018-12-31] MEDS ORDERED: CARV6.2579 PO (13:42)
[2018-12-31] MEDS ORDERED: AMIO200T4 PO (13:42)
--- NOTE | 2018-12-31 15:28 | CARRPT ---
DATE OF PROCEDURE: 12/31/2018 TYPE OF PROCEDURE: Lexiscan Cardiolite stress test, electrocardiogram portion. REASON FOR STRESS TESTING: Chest pain, assess for ischemia. BASELINE VITAL HISTORY SIGNS AND ELECTROCARDIOGRAM: Pulse of 60, blood pressure 169/90. Electrocard iogram shows normal sinus rhythm, rate of 60, normal axis, normal intervals with inferior Q's. PROCEDURE IN DETAILS: The patient underwent standard Lexiscan infusion protocol over 10 seconds foll owed by radiolabeled tracer. The patient's test was stopped at completion of protocol. Maximal achi eved blood pressure during the test was 154/76. Maximum heart rate during test was 84. ELECTROCARDIOGRAM FINDINGS: The patient did not develop any new Lexiscan-induced ST or T-wave change s from baseline abnormalities. No documented PVCs. SYMPTOMS: The patient had slight shortness of breath during stress test that resolved in recovery. No chest pain. IMPRESSION: 1. No Lexiscan-induced ST or T-wave changes from baseline abnormalities diagnostic of cardiac ischem ia. 2. Complaints of shortness of breath during stress testing, no chest pain, which resolved in recover y. 3. No documented premature ventricular contractions during stress testing. 4. Report of nuclear images to follow in separate dictation. Dictated By: ALFREDO BERMUDEZ/HAJA Conf#: [id number] DID#: [id number] CC: CHELITA QUILES MD;*End*
--- NOTE | 2018-12-31 15:29 | PDOCDIS ---
Discharge Instructions CONDITION [id number] Patient Condition: [id number] Stable FOLLOW UP/APPOINTMENTS Follow-up Plan 1. Please follow-up with your stitcher hand Dr. Oglesby, within 1 week 2. Please make sure to stop your home dose of amiodarone a new dose of amiodarone will be given to you at discharge 3. Please stop metoprolol completely, you will be given a new prescription for carvedilol 4. Please continue all other home medications CHELITA QUILES Dec 31, 2018 15:29
--- NOTE | 2018-12-31 15:38 | DS ---
Date/Time of Note Date/Time of Note DATE: 12/31/18 TIME: 15:38 Discharge Summary Admission/Discharge Info Admit Date/Time Dec 30, 2018 at 10:51 Discharge Date/Time Patient Condition: Stable Hospital Course Patient is a [place] male with a past medical history significant for coronary artery disease, paroxysmal A. fib who originally presented to [facility] for chest palpitations and chest irritation. Patient data acquisition technician who follows him outpatient saw patient and scheduled him for stress test. Patient was ruled out for ACS and stress test showed predominantly non- reperfusable defect. Patient was cleared by cardiology to be discharged. Upon discharge it was clearly explained to the patient that his medications were adjusted including stopping metoprolol and starting carvedilol as well as an adjustment to his dose of amiodarone. At this time patient will continue Eliquis but will not continue aspirin at this time as after speaking with patient's outpatient data acquisition technician patient has unexplained thrombocytopenia that is being proven difficult to control in the outpatient setting and Dr. Oglesby, suggested we hold baby aspirin for now and to follow-up with him in the office within 2 days as he will find space for him. Patient feels well and was cleared by physical therapy. Patient will be discharged. Of note patient had a very mild increase in white count however not significantly elevated, patient has absolutely no signs of infectious process at this time, no fever, chest x-ray clear, no painful urination, will follow up with his doctor within a few days. Discharge diagnosis Chest palpitations with chest irritation, resolved Coronary artery disease, chronic Paroxysmal A. fib, chronic Diabetes mellitus, chronic Dyslipidemia, chronic BPH, chronic Home Meds Active Scripts Carvedilol* (Carvedilol*) 6.25 Mg Tablet, 6.25 MG PO BID for 30 Days, #60 TAB Prov:CHELITA QUILES 12/31/18 Amiodarone Hcl* (Amiodarone Hcl*) 200 Mg Tablet, 200 MG PO BID for 30 Days, #60 TAB Prov:CHELITA QUILES 12/31/18 Reported Medications Potassium Citrate* (Potassium Citrate* ER) 15 Meq Tablet.er, 15 MEQ PO DAILY, TAB.SA 12/30/18 Rosuvastatin Calcium* (Crestor*) 10 Mg Tablet, 10 MG PO QHS, #30 TAB 12/30/18 Tamsulosin Hcl* (Tamsulosin Hcl*) 0.4 Mg Cap.er.24h, 0.4 MG PO HS, CAP 12/30/18 Dutasteride* (Avodart*) 0.5 Mg Capsule, 0.5 MG PO DAILY, CAP 12/30/18 Glimepiride* (Glimepiride*) 1 Mg Tablet, 1 MG PO WITH LUNCH, TAB 12/30/18 Nitroglycerin* (Nitroglycerin* SL) 0.4 Mg Tab.subl, 0.4 MG SL Q5MIN PRN for CHEST PAIN, BOTTLE 12/30/18 Cholecalciferol* (Vitamin D3*) 1,000 Unit Tablet, 1000 UNIT PO DAILY, TAB 12/30/18 Folic Acid* (Folic Acid*) 1 Mg Tablet, 1 MG PO DAILY, TAB 12/30/18 Apixaban* (Eliquis*) 2.5 Mg Tablet, 2.5 MG PO BID, TAB 12/30/18 Discontinued Reported Medications Metoprolol Tartrate* (Lopressor*) 25 Mg Tab, 25 MG PO QPM, #60 TAB 12/30/18 Amiodarone Hcl* (Amiodarone Hcl*) 100 Mg Tablet, 100 MG PO DAILY, #30 TAB 12/30/18 Metformin* (Glucophage*) 500 Mg Tab, 500 MG PO WITH BREAKFAST, #30 TAB 12/20/15 Edoxaban Tosylate (Savaysa) 30 Mg Tablet, 30 MG PO DAILY, TAB 12/20/15 Tamsulosin Hcl* (Flomax*) 0.4 Mg Cap.er.24h, 0.4 MG PO DAILY, CAP 06/19/14 Febuxostat* (Uloric*) 40 Mg Tablet, 40 MG PO DAILY, TAB 06/19/14 Ramipril (Ramipril) 2.5 Mg Capsule, 2.5 MG PO DAILY, CAP 06/19/14 Potassium Citrate* (Potassium Citrate* ER) 5 Meq Tablet.sa, 15 MEQ PO DAILY, TAB.SA 06/19/14 Dabigatran Etexilate Mesylate* (Pradaxa*) 150 Mg Capsule, 150 MG PO BID, CAP 06/19/14 Amiodarone Hcl* (Amiodarone Hcl*) 200 Mg Tablet, 1 DAILY 04/16/12 Rosuvastatin Calcium* (Crestor*) 10 Mg Tablet, 1 DAILY 04/16/12 Dutasteride* (Avodart*) 0.5 Mg Capsule, 1 DAILY 04/16/12 Discontinued Scripts Tramadol HCl (Tramadol HCl) 50 Mg Tablet, 50 MG PO Q4 PRN for PAIN, #20 TAB Prov:TERE MEADOWS 06/16/18 Follow-up Plan 1. Please follow-up with your data acquisition technician Dr. Oglesby, within 1 week 2. Please make sure to stop your home dose of amiodarone a new dose of amiodarone will be given to you at discharge 3. Please stop metoprolol completely, you will be given a new prescription for carvedilol 4. Please continue all other home medications Primary Care Provider Not On Staff Doctor Pending Labs Laboratory Tests Test 12/30/18 17:16 12/30/18 20:29 12/30/18 21:01 12/31/18 01:46 Bedside 144 112 113 Glucose mg/dL (70-220) mg/dL (70-220) mg/dL (70-220) Creatine 61 Kinase IU/L (23-200) Creatine Kinase 1.8 Index Creatinine 1.10 Kinase MB ng/ml (0.0-2.4 (Mass) ) Troponin I < 0.012 ng/ml (0.000-0 .120) Test 12/31/18 06:05 12/31/18 07:53 12/31/18 12:30 White Blood 13.4 Count 10^3/ul (4.8-10 .8) Red Blood 4.90 Count 10^6/ul (4.70-6 .10) Hemoglobin 14.3 g/dl (14.0-18.0 ) Hematocrit 42.7 % (42.0-52.0) Mean 87.1 Corpuscular fl (82.0-101.0) Volume Mean 29.2 Corpuscular pg (29.0-33.0) Hemoglobin Mean 33.5 Corpuscular g/dl (32.0-37.0 Hemoglobin Conc ) ent Red Cell 13.2 Distribution % (11.5-14.5) Width Platelet Count 94 10^3/UL (140-41 5) Mean Platelet 10.8 Volume fl (7.4-10.4) Immature 0.400 Granulocytes % % (0.001-0.429) Neutrophils % 38.9 % (39.0-77.0) Lymphocytes % 51.3 % (15.0-51.0) Monocytes % 7.7 % (0.0-11.0) Eosinophils % 1.5 % (0.0-7.0) Basophils % 0.2 % (0.0-2.0) Nucleated Red 0.0 Blood Cells % /100WBC (0.0-0. 0) Immature 0.060 Granulocytes # 10^3/ul (0.0-0. 031) Neutrophils # 5.2 10^3/ul (1.6-7. 5) Lymphocytes # 6.9 10^3/ul (0.8-2. 9) Monocytes # 1.0 10^3/ul (0.3-0. 9) Eosinophils # 0.2 10^3/ul (0.0-0. 5) Basophils # 0.0 10^3/ul (0.0-0. 1) Nucleated Red 0.0 Blood Cells # 10^3/ul (0.0-0. 0) Sodium Level 138 mmol/L (135-144 ) Potassium 4.2 Level mmol/L (3.5-5.1 ) Chloride Level 104 mmol/L (97-110) Carbon Dioxide 27 Level mmol/L (21-31) Anion Gap 7 (5-13) Blood Urea 21 mg/dl (7-20) Nitrogen Creatinine 1.10 mg/dl (0.61-1.2 4) Est Glomerular mL/min (>60) Filtrat Rate mL/min Glucose Level 111 mg/dl (70-220) Hemoglobin A1c 6.3 % (0-5.9) Calcium Level 8.9 mg/dl (8.4-10.2 ) Magnesium 2.0 Level mg/dl (1.7-2.5) Total 1.3 Bilirubin mg/dl (0.2-1.3) Direct 0.00 Bilirubin mg/dl (0.00-0.2 0) Indirect 1.3 Bilirubin mg/dl (0-1.1) Aspartate Amino 18 IU/L (15-46) Transf (AST/SGO T) Alanine 19 IU/L (13-69) Aminotransferas e (ALT/SGPT) Alkaline 44 Phosphatase IU/L (42-121) Total Protein 5.9 g/dl (6.1-8.1) Albumin 3.6 g/dl (3.3-4.9) Globulin 2.30 g/dl (1.3-3.2) Albumin/Globuli 1.56 n Ratio Triglycerides 103 Level mg/dl (0-149) Cholesterol 130 Level mg/dl (100-200) LDL 61 mg/dl Cholesterol, Calculated HDL 48 Cholesterol mg/dl (31-75) Cholesterol/HDL 2.7 RATIO Ratio Bedside 142 112 Glucose mg/dL (70-220) mg/dL (70-220) CHELITA QUILES Dec 31, 2018 15:38
--- NOTE | 2018-12-31 23:40 | RADRPT ---
Echocardiogram Report Patient Name: ANUP THAKURPatient ID: [id number] : 1940 (78y 5m)Study Date: 12/30/2018 3:19:59 PM Gender: MAccession #: [id number] Tech: [facility] Location: 518-A Ref.Physician: CHELITA QUILES Height(Cm): BSA: Weight(Kg): Quality: AdequateAccount #: Procedures: Echocardiographic Report: Transthoracic echocardiogram with complete 2D, M-Mode, and doppler examination. Indications: Chest Pain. Measurements: 2D/M Mode Doppler Measurement Value Normal Range Measurement Value Normal Range LVIDd 2D 4.2 [ 4.2 - 5.8 ] cm AV Peak Hermann 1.1 [ 100.0 - 170.0 ] cm/sec LVIDs 2D 2.7 [ 2.5 - 4.0 ] cm AV Peak PG 5.0 [ 2.0 - 9.0 ] mmHg LVPWd 2D 0.9 [ 0.6 - 1.0 ] cm LVOT Peak Hermann 0.6 [ 70.0 - 110.0 ] cm/sec IVSd 2D 1.2 [ 0.6 - 1.0 ] cm LVOT Peak PG 2.0 [ 2.0 - 6.0 ] mmHg AoR Diam 2D 3.1 [ 2.6 - 3.4 ] cm MV E Peak Hermann 0.5 [ 60.0 - 130.0 ] cm/sec EDV 2D 78.1 [ 62.0 - 150.0 ] ml MV A Peak Hermann 0.8 [ 100.0 - 120.0 ] cm/sec ESV 2D 25.8 [ 21.0 - 61.0 ] ml MV E/A 0.6 [ 0.8 - 1.5 ] ratio EF 2D 67.0 [ 52.0 - 72.0 ] percent MV Decel Time 289 [ 104 - 258 ] msec LA Dimen 2D 3.7 [ 3.0 - 4.0 ] cm Lat E` Hermann 0.1 [ 10.0 - 15.0 ] cm/sec LVOT Diam 2.1 [ 2.3 - 2.9 ] cm Lateral E/E` 5.5 [ 1.0 - 2.0 ] ratio MV E/A 0.6 [ 0.8 - 1.5 ] ratio TR Peak Hermann 2.5 [ 100.0 - 280.0 ] cm/sec TR Peak PG 25.0 mmHg RVSP 28.0 [ 10.0 - 36.0 ] mmHg Findings: Left Ventricle: Normal left ventricular systolic function. Normal left ventricular cavity size. Mild asymmetric septal hypertrophy. Ejection fraction is visually estimated at 60-65 %. Tissue Doppler/Mitral Doppler indices are consistent with impaired relaxation (Stage I diastolic dysfunction). Right Ventricle: Normal right ventricular size. Normal right ventricular systolic function. Pacemaker right heart. Left Atrium: The left atrium is normal in size. Right Atrium: The right atrium is normal in size. Mitral Valve: Mild mitral leaflet calcification. Mild mitral annular calcification. Trace mitral regurgitation. Aortic Valve: Aortic sclerosis without significant stenosis. Tricuspid Valve: Normal appearance of the tricuspid valve. Estimated peak PA systolic pressure 28 mmHg. There is mild tricuspid regurgitation. Pericardium: Normal pericardium with no significant pericardial effusion. Aorta: Normal aortic root. IVC: Normal size and normal respiratory collapse consistent with normal right atrial pressure. Conclusions: Normal left ventricular systolic function. Normal left ventricular cavity size. Mild asymmetric septal hypertrophy. Ejection fraction is visually estimated at 60-65 %. Tissue Doppler/Mitral Doppler indices are consistent with impaired relaxation (Stage I diastolic dysfunction). Mild mitral leaflet calcification. Mild mitral annular calcification. Trace mitral regurgitation. Normal appearance of the tricuspid valve. Estimated peak PA systolic pressure 28 mmHg. There is mild tricuspid regurgitation. Electronically Signed By: Bernard George 2018-12-31 23:39:23 PDT
== END 2018-12-31 17:42 | disposition home or self-care (01) ==
LOC: E/R 08:47 → TEL 10:51
PROVIDERS: ADMIT Internal Medicine; ATTEND Internal Medicine
DX: R07.9 Chest pain, unspecified (principal); I48.91 Unspecified atrial fibrillation; I25.10 Atherosclerotic heart disease of native coronary artery without angina pectoris; N40.0 Benign prostatic hyperplasia without lower urinary tract symptoms; E78.5 Hyperlipidemia, unspecified; E11.9 Type 2 diabetes mellitus without complications; Z95.0 Presence of cardiac pacemaker; Z79.4 Long term (current) use of insulin; Z79.01 Long term (current) use of anticoagulants; Z79.84 Long term (current) use of oral hypoglycemic drugs
CPT/HCPCS: 36415; 71045; 78452; 80048; 80053; 80061; 82550; 82553; 82962; 83036; 83735; 84484; 85025; 93005; 93017; 93306; 97161; 99285; A9500; A9505; G0378; J1815; J2785

== ENCOUNTER → 2019-01-20 | Outpatient (CLI) | payer MEDICARE, OTHER ==
[~2019-01-20] MED LIST changes: -AMIO200T; +AMIO200T4 PO; +APIX2.5T PO; +CARV6.2579 PO; +CHOL100062 PO; -DABI150C PO; -DUTA0.5C; +DUTA0.5C PO; -EDOX30TA PO; -FEBU40TA PO; +FOLI-49 PO; +GLIM1TAB2 PO; +IOHEXOL 300MG/ML 150 ML BTL ONE; -METF-849 PO; +NITR0.4T32 SL; +POTA15TA9 PO; -POTA5TAB PO; -RAMI2.5C36 PO; -RSV10T; +RSV10T PO; +SOD CHLORIDE 0.9% 100 ML ONE; -TAMS-14 PO; +TAMS0.4C2 PO; -TRAM50TA2 PO
== END | disposition home or self-care (01) ==
LOC: C/S 08:45
PROVIDERS: ATTEND Specialist
DX: C85.90 Non-Hodgkin lymphoma, unspecified, unspecified site (principal)
CPT/HCPCS: 71260; 74177; Q9967

== ENCOUNTER 2019-01-22 01:32 | Emergency (ER) | payer MEDICARE, OTHER ==
[~2019-01-22] VITALS: Wt 72.8 kg
[~2019-01-22 01:32] MED LIST changes: -IOHEXOL 300MG/ML 150 ML BTL ONE; -SOD CHLORIDE 0.9% 100 ML ONE
[2019-01-22 01:38] VITALS: PULSE 60; RESP 20
[2019-01-22 02:37] VITALS: BP 160/87
== END 2019-01-22 02:36 | disposition left against medical advice (07) ==
LOC: E/R 01:32
DX: Z53.21 Procedure and treatment not carried out due to patient leaving prior to being seen by health care provider (principal)

== ENCOUNTER 2019-01-23 02:21 | Emergency (ER) | payer MEDICARE, OTHER ==
[~2019-01-23] VITALS: Wt 70.0 kg
[2019-01-23] MEDS ORDERED: NICARDipine HCL 30 MG CAPSULE PO ONE (02:30)
--- NOTE | 2019-01-23 05:23 | ERD ---
ER Documentation Chief Complaint Chief Complaint BIB SELF, CC: HEADACHE AND HIGH BLOOD PRESSURE HPI Patient is an 78-year-old male with hypertension and diabetes who presents with headache and high blood pressure. The patient was brought in by ambulance. He says that his headache is better now. The patient has been taking his blood pressure medicines as directed. He does have a primary doctor. ROS All systems reviewed and are negative except as per history of present illness. Medications Home Meds Active Scripts Carvedilol* (Carvedilol*) 6.25 Mg Tablet, 6.25 MG PO BID for 30 Days, #60 TAB Prov:CHELITA QUILES 12/31/18 Amiodarone Hcl* (Amiodarone Hcl*) 200 Mg Tablet, 200 MG PO BID for 30 Days, #60 TAB Prov:CHELITA QUILES 12/31/18 Reported Medications Potassium Citrate* (Potassium Citrate* ER) 15 Meq Tablet.er, 15 MEQ PO DAILY, TAB.SA 12/30/18 Rosuvastatin Calcium* (Crestor*) 10 Mg Tablet, 10 MG PO QHS, #30 TAB 12/30/18 Tamsulosin Hcl* (Tamsulosin Hcl*) 0.4 Mg Cap.er.24h, 0.4 MG PO HS, CAP 12/30/18 Dutasteride* (Avodart*) 0.5 Mg Capsule, 0.5 MG PO DAILY, CAP 12/30/18 Glimepiride* (Glimepiride*) 1 Mg Tablet, 1 MG PO WITH LUNCH, TAB 12/30/18 Nitroglycerin* (Nitroglycerin* SL) 0.4 Mg Tab.subl, 0.4 MG SL Q5MIN PRN for CHEST PAIN, BOTTLE 12/30/18 Cholecalciferol* (Vitamin D3*) 1,000 Unit Tablet, 1000 UNIT PO DAILY, TAB 12/30/18 Folic Acid* (Folic Acid*) 1 Mg Tablet, 1 MG PO DAILY, TAB 12/30/18 Apixaban* (Eliquis*) 2.5 Mg Tablet, 2.5 MG PO BID, TAB 12/30/18 Allergies Allergies: Coded Allergies: No Known Drug Allergy (Verified Allergy, Unknown, 12/30/18) PMhx/Soc History of Surgery: Yes (PACEMAKER PLACEMENT) Anesthesia Reaction: No Hx Neurological Disorder: No Hx Respiratory Disorders: No Hx Cardiac Disorders: Yes (CAD, A FIB) Hx Psychiatric Problems: No Hx Miscellaneous Medical Probl: Yes (DM , HTN , CSAD A-FIB ,PACEMAKER , BPH , CYTOPENIA .) Hx Alcohol Use: Yes Hx Substance Use: No Hx Tobacco Use: No Smoking Status: Never smoker FmHx Family History: diabetes Physical Exam Vitals Vital Signs Date Temp Pulse Resp B/P (MAP) Pulse Ox O2 O2 Flow FiO2 Time Delivery Rate 01/23/19 60 15 94/63 (73) 94 Room Air 03:39 01/23/19 98.7 60 19 181/105 100 02:25 (130) Physical Exam Const: No acute distress Head: Atraumatic Eyes: Normal Conjunctiva ENT: Normal External Ears, Nose and Mouth. Neck: Full range of motion. No meningismus. Resp: Clear to auscultation bilaterally Cardio: Regular rate and rhythm, no murmurs Abd: Soft, non tender, non distended. Normal bowel sounds Skin: No petechiae or rashes Back: No midline or flank tenderness Ext: No cyanosis, or edema Neur: Awake and alert, cranial nerves II through XII intact, strength is 5 out of 5 in all 4 extremities, no slurred speech Psych: Normal Mood and Affect Results 24 hrs Current Medications Medications Dose Sig/Otilia Start Time Status Last (Trade) Ordered Route PRN Stop Time Admin Dose Reason Admin Nicardipine 30 mg ONCE ONCE 01/23/19 DC 01/23/19 HCl PO 02:30 01/23/19 02:36 (Cardene) 02:31 Procedures/MDM CT brain read by radiology shows no bleed but it does show [address] scan report was given to the patient prior to discharge. Patient is an 78-year-old male presents with high blood pressure and headache. I believe the high blood pressure is the cause of his headache at this time and he feels better upon arrival to the emergency department. The patient will be given Cardene for his blood pressure. CT scan of the brain shows a 2 cm meningioma I have given him the CT scan report and told him that he will need to follow-up with his primary doctor within 1 week for reevaluation. The patient can return for any worsening symptoms. I doubt stroke, mass, or bleed. Departure Diagnosis: Primary Impression: HTN (hypertension) Hypertension type: essential hypertension Qualified Codes: I10 - Essential (primary) hypertension Additional Impression: Headache Headache type: unspecified Headache chronicity pattern: acute headache Intractability: not intractable Qualified Codes: R51 - Headache Condition: Fair Patient Instructions: Self-Care for Headaches, High Blood Pressure (Hypertension) Referrals: Dr. Austin Additional Instructions: Call your primary care doctor TOMORROW for an appointment during the next 1 WEEK.Tell the accredited legal secretary that you were referred from this facility.See the doctor sooner or return here if your condition worsens before your appointment time. JOSELIN THAYER MD January 23, 2019 05:23
[2019-01-23 05:30] VITALS: BP 117/78; PULSE 60; RESP 15
== END 2019-01-23 06:00 | disposition home or self-care (01) ==
LOC: E/R 02:21
DX: I10 Essential (primary) hypertension (principal); E11.9 Type 2 diabetes mellitus without complications; I25.10 Atherosclerotic heart disease of native coronary artery without angina pectoris; Z79.01 Long term (current) use of anticoagulants; Z79.84 Long term (current) use of oral hypoglycemic drugs; Z95.0 Presence of cardiac pacemaker
CPT/HCPCS: 70450

== ENCOUNTER 2019-01-27 00:33 | Emergency (ER) | payer MEDICARE, OTHER ==
[~2019-01-27] VITALS: Ht 165.1 cm; Wt 74.1 kg
[2019-01-27 00:43] VITALS: Ht 165.1 cm; Wt 74.1 kg
--- NOTE | 2019-01-27 04:26 | ERD ---
ER Documentation Chief Complaint Chief Complaint HTN 182/109 at home 3 hrs ago, took clonidine 0.1mg PRN X2 HPI 78-year-old male presents with complaint of hypertension. States that he took his blood pressure at home several hours ago and it was 182/109. After that he took clonidine 0.1 mg. States he is on amlodipine but he still sees his blood pressure fluctuate. He states that he is being followed up by his primary care regarding his hypertension. Denies any headaches, vision problems, chest pain, dysuria, hematuria, flank pain. ROS All systems reviewed and are negative except as per history of present illness. Medications Home Meds Active Scripts Carvedilol* (Carvedilol*) 6.25 Mg Tablet, 6.25 MG PO BID for 30 Days, #60 TAB Prov:CHELITA QUILES 12/31/18 Amiodarone Hcl* (Amiodarone Hcl*) 200 Mg Tablet, 200 MG PO BID for 30 Days, #60 TAB Prov:CHELITA QUILES 12/31/18 Reported Medications Potassium Citrate* (Potassium Citrate* ER) 15 Meq Tablet.er, 15 MEQ PO DAILY, TAB.SA 12/30/18 Rosuvastatin Calcium* (Crestor*) 10 Mg Tablet, 10 MG PO QHS, #30 TAB 12/30/18 Tamsulosin Hcl* (Tamsulosin Hcl*) 0.4 Mg Cap.er.24h, 0.4 MG PO HS, CAP 12/30/18 Dutasteride* (Avodart*) 0.5 Mg Capsule, 0.5 MG PO DAILY, CAP 12/30/18 Glimepiride* (Glimepiride*) 1 Mg Tablet, 1 MG PO WITH LUNCH, TAB 12/30/18 Nitroglycerin* (Nitroglycerin* SL) 0.4 Mg Tab.subl, 0.4 MG SL Q5MIN PRN for CHEST PAIN, BOTTLE 12/30/18 Cholecalciferol* (Vitamin D3*) 1,000 Unit Tablet, 1000 UNIT PO DAILY, TAB 12/30/18 Folic Acid* (Folic Acid*) 1 Mg Tablet, 1 MG PO DAILY, TAB 12/30/18 Apixaban* (Eliquis*) 2.5 Mg Tablet, 2.5 MG PO BID, TAB 12/30/18 Allergies Allergies: Coded Allergies: No Known Drug Allergy (Verified Allergy, Unknown, 12/30/18) PMhx/Soc History of Surgery: Yes (PACEMAKER PLACEMENT) Anesthesia Reaction: No Hx Neurological Disorder: No Hx Respiratory Disorders: No Hx Cardiac Disorders: Yes (CAD, A FIB) Hx Psychiatric Problems: No Hx Miscellaneous Medical Probl: Yes (DM , HTN , CSAD A-FIB ,PACEMAKER , BPH , CYTOPENIA .) Hx Alcohol Use: Yes Hx Substance Use: No Hx Tobacco Use: No FmHx Family History: No diabetes, No coronary disease, No other Physical Exam Vitals Vital Signs Date Temp Pulse Resp B/P (MAP) Pulse Ox O2 O2 Flow FiO2 Time Delivery Rate 01/27/19 60 154/79 01:49 (104) 01/27/19 58 18 122/80 95 Room Air 01:11 (94) 01/27/19 97.4 64 18 160/87 97 00:43 (111) Physical Exam Const: No acute distress Head: Atraumatic Eyes: Normal Conjunctiva ENT: Normal External Ears, Nose and Mouth. Neck: Full range of motion. No meningismus. Resp: Clear to auscultation bilaterally Cardio: Regular rate and rhythm, no murmurs Abd: Soft, non tender, non distended. Normal bowel sounds Skin: No petechiae or rashes Back: No midline or flank tenderness Ext: No cyanosis, or edema Neur: Awake and alert Psych: Normal Mood and Affect Neuro: M/S: Alert and oriented Face: EOMI, face and pharynx with normal sensation and function Motor: Normal strength throughout Sensation: Normal sensation throughout Speech: Normal Cerebel: Normal coordination Normal gait Normal finger to nose DTR: 2+ and symmetric upper/lower extremities Procedures/MDM MDM: Patient's blood pressure in the ER was 154/79 and patient is asymptomatic. I have low suspicion for hypertensive crisis or urgency. I said that patient should keep taking a log of his blood pressure and bring it to his primary care as this hypertensive drugs may need to be adjusted. Patient agreed to do this. I also advised patient to stay away from sodium and to incorporate lifestyle changes in order to help his blood pressure go down. Patient discharged with strict ER precautions. Patient advised to follow up with PMD. All questions answered at discharge. Departure Diagnosis: Primary Impression: Hypertension Hypertension type: essential hypertension Qualified Codes: I10 - Essential (primary) hypertension Condition: Stable Patient Instructions: High Blood Pressure (Hypertension) Referrals: [facility] YOU HAVE RECEIVED A MEDICAL SCREENING EXAM AND THE RESULTS INDICATE THAT YOU DO NOT HAVE A CONDITION THAT REQUIRES URGENT TREATMENT IN THE EMERGENCY DEPARTMENT. FURTHER EVALUATION AND TREATMENT OF YOUR CONDITION CAN WAIT UNTIL YOU ARE SEEN IN YOUR DOCTORS OFFICE WITHIN THE NEXT 1-2 DAYS. IT IS YOUR RESPONSIBILITY TO MAKE AN APPOINTMENT FOR FOLOW-UP CARE. IF YOU HAVE A PRIMARY DOCTOR --you should call your primary doctor and schedule an appointment IF YOU DO NOT HAVE A PRIMARY DOCTOR YOU CAN CALL OUR PHYSICIAN REFERRAL HOTLINE AT IF YOU CAN NOT AFFORD TO SEE A PHYSICIAN YOU CAN CHOSE FROM THE FOLLOWING [facility] [address] [facility] [address] [facility] [address] [facility] [address] [facility] [address] [facility] [facility]. [address] Additional Instructions: FOLLOW UP WITH YOUR PRIMARY CARE PHYSICIAN TOMORROW.Return to this facility if you are not improving as expected. TERE RAMSEY January 27, 2019 04:26
[2019-01-27 04:38] VITALS: BP 120/78; PULSE 59; RESP 18
== END 2019-01-27 04:40 | disposition home or self-care (01) ==
LOC: FTE 00:33
DX: I10 Essential (primary) hypertension (principal); E11.9 Type 2 diabetes mellitus without complications; I25.10 Atherosclerotic heart disease of native coronary artery without angina pectoris; Z79.01 Long term (current) use of anticoagulants; Z95.0 Presence of cardiac pacemaker
CPT/HCPCS: 99282

== ENCOUNTER 2019-05-08 19:04 | Emergency (ER) | payer MEDICARE, OTHER ==
[~2019-05-08] VITALS: Ht 162.6 cm; Wt 73.0 kg
[2019-05-08 19:08] VITALS: Ht 162.6 cm; Wt 73.0 kg
--- NOTE | 2019-05-08 22:36 | ERD ---
ER Documentation Chief Complaint Chief Complaint CP x 15 min resolved w/ own NTG x 3 doses, given asa 324 by EMS HPI This is a pleasant 78-year-old male who presents for evaluation of a 15-minute episode of chest pain, that was nonexertional, that now resolved. Patient states he has history of uncontrolled hypertension, takes nitroglycerin intermittently, he is brought in by EMS and given aspirin. He denies a history of an NM. He has not had any shortness of breath, he has not had any abdominal pain. He has not had a fever. ROS All systems reviewed and are negative except as per history of present illness. Medications Home Meds Active Scripts Carvedilol* (Carvedilol*) 6.25 Mg Tablet, 6.25 MG PO BID for 30 Days, #60 TAB Prov:CHELITA QUILES 12/31/18 Amiodarone Hcl* (Amiodarone Hcl*) 200 Mg Tablet, 200 MG PO BID for 30 Days, #60 TAB Prov:CHELITA QUILES 12/31/18 Reported Medications Potassium Citrate* (Potassium Citrate* ER) 15 Meq Tablet.er, 15 MEQ PO DAILY, TAB.SA 12/30/18 Rosuvastatin Calcium* (Crestor*) 10 Mg Tablet, 10 MG PO QHS, #30 TAB 12/30/18 Tamsulosin Hcl* (Tamsulosin Hcl*) 0.4 Mg Cap.er.24h, 0.4 MG PO HS, CAP 12/30/18 Dutasteride* (Avodart*) 0.5 Mg Capsule, 0.5 MG PO DAILY, CAP 12/30/18 Glimepiride* (Glimepiride*) 1 Mg Tablet, 1 MG PO WITH LUNCH, TAB 12/30/18 Nitroglycerin* (Nitroglycerin* SL) 0.4 Mg Tab.subl, 0.4 MG SL Q5MIN PRN for CHEST PAIN, BOTTLE 12/30/18 Cholecalciferol* (Vitamin D3*) 1,000 Unit Tablet, 1000 UNIT PO DAILY, TAB 12/30/18 Folic Acid* (Folic Acid*) 1 Mg Tablet, 1 MG PO DAILY, TAB 12/30/18 Apixaban* (Eliquis*) 2.5 Mg Tablet, 2.5 MG PO BID, TAB 12/30/18 Allergies Allergies: Coded Allergies: No Known Drug Allergy (Verified Allergy, Unknown, 12/30/18) PMhx/Soc History of Surgery: Yes (PACEMAKER PLACEMENT) Anesthesia Reaction: No Hx Neurological Disorder: No Hx Respiratory Disorders: No Hx Cardiac Disorders: Yes (CAD, A FIB, HTN) Hx Psychiatric Problems: No Hx Miscellaneous Medical Probl: Yes (BPH) Hx Alcohol Use: Yes (SOMETIMES) Hx Substance Use: No Hx Tobacco Use: No Smoking Status: Never smoker Physical Exam Vitals Vital Signs Date Temp Pulse Resp B/P (MAP) Pulse Ox O2 O2 Flow FiO2 Time Delivery Rate 05/08/19 60 15 130/74 98 Room Air 20:50 (92) 05/08/19 60 12 119/72 99 Room Air 19:20 (88) 05/08/19 98.1 60 17 133/87 97 19:08 (102) Physical Exam Const: Well-developed, well-nourished nontoxic Head: Atraumatic Eyes: Normal Conjunctiva ENT: Normal External Ears, Nose and Mouth. Neck: Full range of motion. No meningismus. Resp: Clear to auscultation bilaterally, no wheezes rales rhonchi Cardio: Regular rate and rhythm, no murmurs Abd: Soft, non tender, non distended. Normal bowel sounds Skin: No petechiae or rashes Back: No midline or flank tenderness Ext: No cyanosis, or edema Neur: Awake and alert Psych: Normal Mood and Affect Result Diagram: 05/08/19191405/08/191914 Results 24 hrs Laboratory Tests Test 05/08/19 19:15 05/08/19 22:10 White Blood Count 12.1 10^3/ul Red Blood Count 4.64 10^6/ul Hemoglobin 13.9 g/dl Hematocrit 42.6 % Mean Corpuscular Volume 91.8 fl Mean Corpuscular Hemoglobin 30.0 pg Mean Corpuscular Hemoglobin Concent 32.6 g/dl Red Cell Distribution Width 13.6 % Platelet Count 130 10^3/UL Mean Platelet Volume 10.2 fl Immature Granulocytes % 0.400 % Neutrophils % 46.5 % Lymphocytes % 45.6 % Monocytes % 6.7 % Eosinophils % 0.6 % Basophils % 0.2 % Nucleated Red Blood Cells % 0.0 /100WBC Immature Granulocytes # 0.050 10^3/ul Neutrophils # 5.6 10^3/ul Lymphocytes # 5.5 10^3/ul Monocytes # 0.8 10^3/ul Eosinophils # 0.1 10^3/ul Basophils # 0.0 10^3/ul Nucleated Red Blood Cells # 0.0 10^3/ul Prothrombin Time 13.4 Sec Prothrombin Time Ratio 1.0 INR International Normalized Ratio 1.01 Sodium Level 138 mmol/L Potassium Level 4.1 mmol/L Chloride Level 103 mmol/L Carbon Dioxide Level 29 mmol/L Anion Gap 6 Blood Urea Nitrogen 24 mg/dl Creatinine 1.41 mg/dl Est Glomerular Filtrat Rate mL/min mL/min Glucose Level 149 mg/dl Calcium Level 9.2 mg/dl Total Bilirubin 0.9 mg/dl Direct Bilirubin 0.00 mg/dl Indirect Bilirubin 0.9 mg/dl Aspartate Amino Transf (AST/SGOT) 24 IU/L Alanine Aminotransferase (ALT/SGPT) 32 IU/L Alkaline Phosphatase 48 IU/L Troponin I < 0.012 ng/ml < 0.012 ng/ml B-Type Natriuretic Peptide 196 PG/ML Total Protein 6.3 g/dl Albumin 3.9 g/dl Globulin 2.40 g/dl Albumin/Globulin Ratio 1.62 Procedures/MDM 78-year-old male presents for evaluation of chest pain now resolved. Considered aortic dissection or pulmonary embolism however less likely, primary concern was for acute coronary syndrome. His symptoms were nonexertional, and his troponins were negative x2, he is moderate risk based on risk factors, his EKG showed no ischemic changes. I discussed findings with patient and his family, shared decision making was made for further work-up as outpatient given his 2 negative workup today. At discharge patient was pain-free and in no distress. EKG: Rate/Rhythm: Atrial pacemaker QRS, ST, T-waves: No changes consistent w/ acute ischemia Impression: No evidence of ischemia or arrhythmia Departure Diagnosis: Primary Impression: Chest pain Chest pain type: unspecified Qualified Codes: R07.9 - Chest pain, unspecified Condition: Stable CHELITA BORREGO MD May 08, 2019 22:36
[2019-05-08 23:30] VITALS: BP 144/84; PULSE 59; RESP 16
== END 2019-05-08 23:41 | disposition home or self-care (01) ==
LOC: E/R 19:04
DX: R07.9 Chest pain, unspecified (principal); I10 Essential (primary) hypertension; I25.10 Atherosclerotic heart disease of native coronary artery without angina pectoris; E11.9 Type 2 diabetes mellitus without complications; Z95.0 Presence of cardiac pacemaker; Z79.84 Long term (current) use of oral hypoglycemic drugs
CPT/HCPCS: 36415; 71045; 80053; 83880; 84484; 85025; 85610; 93005